=== PATIENT | male | born 1965 | race Caucasian/White ===

== ENCOUNTER → 2021-04-04 07:51 | Outpatient (CLI) | payer BC, SELFPAY ==
--- NOTE | ~2021-04-04 | US_ITS ---
US renal BI 04/04/2021 08:44 Procedure: Realtime transabdominal ultrasound of the kidneys and bladder. Indication: Essential hypertension Comparison: No prior studies for comparison. Findings: Renal echotexture is normal bilaterally without hydronephrosis, contour deforming mass or r enal calculus. The right kidney measures 13.5 cm and left kidney measures 13 cm. There is a left misael l cyst medially measuring 1.6 cm Bladder within normal limits. Impression: 1: Left renal cyst measuring 1.6 cm. Reviewed, dictated and finalized at location A. EF MATE Impression: 1: Left renal cyst measuring 1.6 cm.
--- NOTE | ~2021-04-04 | US_ITS ---
EXAMINATION: US retroperitoneal duplex ltd DATE: 04/04/2021 08:53 INTERNATIONAL REPRESENTATIVE INDICATION: The TECHNIQUE: Multiple grayscale, color Doppler, and pulsed Doppler images of the kidneys and renal jairo tyshawn were obtained. COMPARISON: None. FINDINGS: The aorta peak systolic velocity is 73 cm/s. The right renal artery peak systolic velocity is 63 cm/s in the proximal segment, 75 cm/s in the mid segment, 165 cm/s in the distal segment. The left renal artery peak systolic velocity is 101 cm/s in the proximal segment, 121 cm/s in the mid segment, 167 c m/s in the distal segment. The renal artery/aorta systolic ratio on the right is 2.26 and on the left is 2.29. Notes: renal artery stenosis is >=180-200 cm/s or >3.5:1 ratio of renal artery velocity to aorta. Thi s correlates with >50-60% stenosis. IMPRESSION: 1. No Doppler evidence of renal artery stenosis. Reviewed, dictated and finalized at location A. RNATIONAL REPRESENTATIVE
== END ==
PROVIDERS: PCP Internal Medicine; Visit Provider Internal Medicine
DX: K76.89 Other specified diseases of liver (principal); I10 Essential (primary) hypertension
CPT/HCPCS: 76775; 93976

== ENCOUNTER → 2021-07-19 11:11 | Outpatient (CLI) | payer BC, SELFPAY ==
--- NOTE | ~2021-07-19 | US_ITS ---
EXAMINATION: US renal BI DATE: 07/19/2021 11:29 INDICATION: Stage III chronic kidney disease TECHNIQUE: Multiple ultrasound grayscale images of the kidneys were obtained. COMPARISON: 04/04/2021 FINDINGS: The right kidney measures 12.7 x 5.9 x 5.7 cm. The left kidney measures 11.9 x 6.1 x 5.2 cm. The kidn eys demonstrate normal echogenicity. 1.7 cm anechoic cyst at the periphery of the left kidney. There is no hydronephrosis in either kidney. No stones identified. The bladder is normal. IMPRESSION: 1. 1.7 cm left renal cyst. Otherwise normal kidneys without hydronephrosis. Reviewed, dictated and finalized at location B.
== END ==
PROVIDERS: PCP Internal Medicine; Visit Provider Specialist
DX: N18.30 Chronic kidney disease, stage 3 unspecified (principal); N28.1 Cyst of kidney, acquired
CPT/HCPCS: 76775

== ENCOUNTER → 2021-07-19 11:26 | Outpatient (CLI) | payer BC, SELFPAY ==
--- NOTE | ~2021-07-19 | CT_ITS ---
EXAMINATION:CT lung screening DATE: 07/19/2021 12:02 INDICATION: Nicotine dependence, cigarettes, uncomplicated. Current smoker with 41 pack year history. TECHNIQUE: Computed tomography (CT) of the chest was performed without intravenous contrast. Automate d exposure control and iterative reconstruction technique were employed. The dose-length product (DLP ) was 170.44 mGy-cm. COMPARISON: None. FINDINGS: There is mild emphysema. There is an 8 mm nonsolid nodule in left lower lobe. There is a 5 mm part solid nodule in left lower lobe. No pleural effusion. There is a 3 mm nodule in left upper lo be. There is a 3 mm nodule in left lower lobe. No pleural effusion. The heart size is normal. No jose cardial effusion. There is mild thoracic spondylosis. IMPRESSION: 1. Lung-RADS category 2: Benign appearance or behavior. Continue annual screening with noncontrast lo w-dose chest CT in 12 months. Reviewed, dictated and finalized at location A. IMPRESSION: 1. Lung-RADS category 2: Benign appearance or behavior. Continue annual screeni ng with noncontrast low-dose chest CT in 12 months.
== END ==
PROVIDERS: PCP Internal Medicine; Visit Provider Internal Medicine
DX: Z12.2 Encounter for screening for malignant neoplasm of respiratory organs (principal); F17.210 Nicotine dependence, cigarettes, uncomplicated
CPT/HCPCS: 71271

== ENCOUNTER 2023-08-19 11:17 | Outpatient (CLI) | payer BC, SELFPAY ==
--- NOTE | ~2023-08-19 | US_ITS ---
EXAMINATION: US thyroid DATE: 08/19/2023 11:55 INDICATION: Hypothyroidism. TECHNIQUE: Multiple ultrasound images of the thyroid were obtained. COMPARISON: None. FINDINGS: The right thyroid lobe measures 5.2 x 2.4 x 2.0 cm. The left thyroid lobe measures 4.6 x 2.0 x 2.3 c m. The thyroid demonstrates heterogeneous hypoechogenicity. No discrete nodule. Vascularity is sidra l. IMPRESSION: 1. Heterogeneous thyroid, likely chronic lymphocytic (Frank) thyroiditis. Reviewed, dictated and finalized at location A.
--- NOTE | ~2023-08-19 | CT_ITS ---
CT Scan of the Chest without Contrast: Clinical Indication: Lung cancer screening, nicotine dependence Technique: Contiguous sections were acquired throughout the chest without intravenous contrast. Dose reduction technique was used on this scan by utilizing automated exposure control and iterative recon struction technique. The dose-length product (DLP) was 241.25 mGy-cm. COMPARISON: 422 Findings: There is no evidence of any significant mediastinal, hilar or axillary lymphadenopathy. The mediastin al soft tissues appear normal. There is no evidence of pleural or pericardial effusion. The lungs are clear. No pulmonary nodules or infiltrates are noted. Images through the upper abdomen reveal no abnormalities. Impression: Lung RADS 1: Negative. 12 month follow-up screening CT advised. Reviewed, dictated and finalized at location . Impression: Lung RADS 1: Negative. 12 month follow-up screening CT advised.
== END 2023-08-19 11:18 ==
LOC: MICIMG 11:19
PROVIDERS: PCP Internal Medicine; Visit Provider Internal Medicine
DX: Z12.2 Encounter for screening for malignant neoplasm of respiratory organs (principal); E03.9 Hypothyroidism, unspecified; Z87.891 Personal history of nicotine dependence
CPT/HCPCS: 71271; 76536